=== PATIENT | male | born 1995 | race Two or more races ===

== ENCOUNTER 2019-12-11 03:42 | Emergency (ER) | payer SELFPAY ==
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
== END 2019-12-11 04:35 ==
LOC: MW.ED 03:42
DX: S50.812A Abrasion of left forearm, initial encounter (principal); S50.811A Abrasion of right forearm, initial encounter; F32.9 Major depressive disorder, single episode, unspecified; X78.9XXA Intentional self-harm by unspecified sharp object, initial encounter
CPT/HCPCS: 99283

== ENCOUNTER 2019-12-27 03:15 | Emergency (ER) | payer SELFPAY ==
--- NOTE | 2019-12-27 03:21 | EDM.PDOC ---
ED HPI GENERAL MEDICAL PROBLEM - General Chief Complaint: General Stated Complaint: LEFT SIDE CHEST PAIN Time Seen by Provider: 12/27/19 03:18 Source of Information: Reports: Patient History Limitations: Reports: No Limitations - History of Present Illness INITIAL COMMENTS - FREE TEXT/NARRATIVE: 24-year-old male presents the emergency room with a chief complaint of left- sided sharp chest pain for the past 2 days. She has had flulike symptoms prior to this but now has significant pleuritic pain. Has pain when he moves Onset: Today Duration: Hour(s): (3), Getting Worse Location: Reports: Chest, Abdomen Quality: Reports: Ache, Burning Severity: Moderate Improves with: Reports: None Worsens with: Reports: None, Breathing, Movement Associated Symptoms: Reports: Shortness of Breath left side rib Pain Score (Numeric/FACES): 7 - Related Data Allergies Allergy/AdvReac Type Severity Reaction Status Date / Time No Known Allergies Allergy Verified 12/11/19 03:58 Home Meds: Home Meds Cyclobenzaprine [Flexeril] 10 mg PO BEDTIME #1 tab 12/27/19 [Rx] Cyclobenzaprine [Flexeril] 10 mg PO BEDTIME #14 tab 12/27/19 [Rx] Past Medical History Psychiatric History: Reports: ADHD Other Psychiatric History: ADHD as a child, no longer being treated for it. - Past Surgical History Musculoskeletal Surgical History: Reports: Other (See Below) Other Musculoskeletal Surgeries/Procedures:: meniscus repair to R knee ED ROS GENERAL - Review of Systems Review Of Systems: See Below Constitutional: Reports: No Symptoms HEENT: Reports: No Symptoms Respiratory: Reports: Pleuritic Chest Pain Cardiovascular: Reports: No Symptoms Endocrine: Reports: No Symptoms GI/Abdominal: Reports: No Symptoms, Abdominal Pain Musculoskeletal: Reports: Muscle Pain Skin: Reports: No Symptoms Neurological: Reports: No Symptoms Psychiatric: Reports: No Symptoms Hematologic/Lymphatic: Reports: No Symptoms Immunologic: Reports: No Symptoms ED EXAM, GENERAL - Physical Exam Exam: See Below Exam Limited By: No Limitations General Appearance: Alert, WD/WN, No Apparent Distress, Moderate Distress Eye Exam: Bilateral Eye: Normal Fundi, Normal Inspection Ear Exam: Bilateral Ear: Auricle Normal, Canal Normal Nose: Normal Inspection, Normal Mucosa, No Blood Throat/Mouth: Normal Inspection, Normal Lips, Normal Teeth, Normal Gums, Normal Oropharynx, Normal Voice, No Airway Compromise Head: Atraumatic, Normocephalic Neck: Normal Inspection, Supple, Non-Tender, Full Range of Motion Respiratory/Chest: No Respiratory Distress, Lungs Clear, Normal Breath Sounds, No Accessory Muscle Use, Chest Non-Tender, Other (Patient has chest wall tenderness 6 intercostal space on palpation) Cardiovascular: Normal Peripheral Pulses, Regular Rate, Rhythm, No Edema, No Gallop, No JVD, No Murmur, No Rub GI/Abdominal: Normal Bowel Sounds, Soft, Non-Tender, No Organomegaly, No Distention, No Abnormal Bruit, No Mass (Male) Exam: Deferred Rectal (Males) Exam: Deferred Back Exam: Normal Inspection, Full Range of Motion, NT Neurological: Alert, Oriented, CN II-XII Intact, Normal Cognition, Normal Gait, Normal Reflexes, No Motor/Sensory Deficits Psychiatric: Normal Affect, Normal Mood Skin Exam: Warm, Dry, Intact, Normal Color, No Rash Lymphatic: No Adenopathy Course - Vital Signs Text/Narrative:: 24-year-old male presents the emergency room chief complaint with acute costal pain. Patient states he has severe pain when he takes a deep breath or moves. Patient had no trauma. His x-rays are normal CT shows no signs of infection. Acute costochondritis patient was placed on anti-inflammatory meds Last Recorded V/S: Last Vital Signs Temp 96.7 F L 12/27/19 03:20 Pulse 65 12/27/19 04:34 Resp 18 12/27/19 04:34 BP 137/72 12/27/19 04:34 Pulse Ox 96 12/27/19 04:34 - Orders/Labs/Meds Labs: Laboratory Tests 12/27/19 Range/Units 03:23 WBC 8.37 (4.0-11.0) K/uL RBC 5.08 (4.50-5.90) M/uL Hgb 14.6 (13.0-17.0) g/dL Hct 44.9 (38.0-50.0) % MCV 88.4 (80.0-98.0) fL MCH 28.7 (27.0-32.0) pg MCHC 32.5 (31.0-37.0) g/dL RDW Std Deviation 42.1 (28.0-62.0) fl RDW Coeff of Anny 13 (11.0-15.0) % Plt Count 186 (150-400) K/uL MPV 9.30 (7.40-12.00) fL Neut % (Auto) 59.6 (48.0-80.0) % Lymph % (Auto) 26.9 (16.0-40.0) % [place] % (Auto) 6.2 (0.0-15.0) % Eos % (Auto) 7.2 H (0.0-7.0) % Baso % (Auto) 0.1 (0.0-1.5) % Neut # (Auto) 5.0 (1.4-5.7) K/uL Lymph # (Auto) 2.3 (0.6-2.4) K/uL [place] # (Auto) 0.5 (0.0-0.8) K/uL Eos # (Auto) 0.6 (0.0-0.7) K/uL Baso # (Auto) 0.0 (0.0-0.1) K/uL Nucleated RBC % 0.0 /100WBC Nucleated RBCs # 0 K/uL Departure - Departure Time of Disposition: 04:46 Disposition: Home, Self-Care 01 Condition: Good Clinical Impression: Acute costochondritis - Discharge Information Instructions: Costochondritis, [id number], Chest Wall Pain, [id number] Forms: ED Department Discharge Additional Instructions: Take your medication as prescribed Follow-up with your primary care physician Sepsis Event Note - Focused Exam Vital Signs: Vital Signs Temp Pulse Resp BP Pulse Ox 12/27/19 04:34 65 18 137/72 96 12/27/19 03:20 96.7 F L 74 16 151/88 H 97 Date Exam was Performed: 12/27/19 Time Exam was Performed: 04:39
--- NOTE | 2019-12-27 04:36 | CR ---
Indication: Rib pain Technique: Chest 2 views Comparison: None Findings/Impression: Cardiovascular and mediastinum: Heart size and vasculature are normal in caliber and appearance. Mediastinum is within normal limits. Lungs and pleural spaces: Lungs are clear. No sign of infiltrate or mass. No sign of pleural effusion. No pneumothorax. Bones and soft tissues: No significant findings. Dictated by Nba Guo MD @ 12/27/2019 4:34:59 AM Dictated by: Nba Guo MD @ 12/27/2019 04:35:05 (Electronically Signed)
[2019-12-27] MEDS ORDERED: Ketorolac 60 MG/2 ML SDV IM ONE (04:42)
[2019-12-27] MEDS ORDERED: Cyclobenzaprine 10 MG Tab PO ONE ×2 (04:47→04:55)
== END 2019-12-27 05:00 | disposition home or self-care (01) ==
LOC: MW.ED 03:15
DX: M94.0 Chondrocostal junction syndrome [Tietze] (principal)
CPT/HCPCS: 36415; 71046; 85025; 99284; A9270; 99282

== ENCOUNTER 2020-01-02 04:50 | Emergency (ER) | payer SELFPAY ==
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
== END 2020-01-02 06:28 | disposition home or self-care (01) ==
LOC: MW.ED 04:50
DX: M62.81 Muscle weakness (generalized) (principal); F17.210 Nicotine dependence, cigarettes, uncomplicated
CPT/HCPCS: 73070-26-LT; 73070-LT; 99282; 99283-25

== ENCOUNTER 2020-01-24 22:58 | Emergency (ER) | payer SELFPAY ==
[2020-01-25] MEDS ORDERED: Ibuprofen 600 MG Tab PO ONE (00:38)
--- NOTE | 2020-01-25 01:09 | CR ---
INDICATION: lt shoulder trauma TECHNIQUE: Left shoulder 3 views. COMPARISON: None. FINDINGS: Bones: Alignment is normal. No fractures or bone lesions. Joint spaces: Unremarkable. Soft tissues: Unremarkable. IMPRESSION: Unremarkable left shoulder. Dictated by: Romario Alexandre MD @ 01/25/2020 01:07:22 (Electronically Signed)
--- NOTE | 2020-01-25 01:16 | EDM.PDOC ---
ED HPI GENERAL MEDICAL PROBLEM - General Chief Complaint: General Stated Complaint: SHOULDER,ANKLE,KNEE PAIN Time Seen by Provider: 01/25/20 00:15 Source of Information: Reports: Patient History Limitations: Reports: No Limitations - History of Present Illness INITIAL COMMENTS - FREE TEXT/NARRATIVE: HISTORY AND PHYSICAL: History of present illness: This is a 24-year-old gentleman who presents ER today complaining of left shoulder pain. Patient reports that he has had old injuries to his knees and ankles. Patient reports today his right knee locked up and he fell down injuring his left shoulder. Patient denies any other symptomatology. Patient denies any loss of consciousness. Patient has any head trauma or neck pain. Patient denies any history of hypertension, diabetes, liver, lung, kidney problems. Patient denies any abdominal or chest surgeries. Patient endorses tobacco alcohol and drugs. Review of systems: As per history of present illness and below otherwise all systems reviewed and negative. Past medical history: As per history of present illness and as reviewed below otherwise noncontributory. Surgical history: As per history of present illness and as reviewed below otherwise noncontributory. Social history: No reported history of drug or alcohol abuse. Family history: As per history of present illness and as reviewed below otherwise noncontributory. Physical exam: Constitutional: Patient is oriented to person, place, and time. Appears well- developed and well-nourished. No distress. HEENT: Moist mucous membranes Head: Normocephalic and atraumatic Eyes: Right eye exhibits no discharge. Left eye exhibits no discharge. No scleral icterus Neck: Normal range of motion. No tracheal deviation present. Cardiovascular: Normal rate and regular rhythm. Pulmonary: Effort normal, no respiratory distress. Abdominal: No distention Musculoskeletal: Normal range of motion Neurologic: Alert and oriented to person, place and time. Skin: [place], warm and dry. Psychiatric: Normal mood and affect. Behavior is normal. Judgment and thought content normal. Nursing note and vital signs have been reviewed Patient's ER physical exam is significant for tenderness to palpation to his right knee and right ankle. Patient has no deformity or swelling identified. Patient has tenderness palpation to his left shoulder with full range of motion intact. Patient is neurovascularly intact sensation and motor function is intact. Diagnostics: Right shoulder x-ray reveals no acute fracture or dislocation. Therapeutics: Ibuprofen 600 mg Impression: Right shoulder injury secondary to fall. Appears to be mechanical in nature without evidence of acute fracture. Patient be discharged home with ibuprofen rest ice elevation. Reassessment at the time of disposition demonstrates that the patient is in no acute distress. The patient has remained stable throughout the entire ED visit and is without objective evidence for acute process requiring urgent intervention or hospitalization. The patient is stable for discharge, counseling is provided as documented above, discussed symptomatic treatment and specific conditions for return. I have spoken with the patient/caregive and discussed todays findings, in addition to providing specific details for the plan of care. Questions are answered and there is agreement with the plan. right ankle, knee, and left collarbone Pain Score (Numeric/FACES): 9 - Related Data Allergies Allergy/AdvReac Type Severity Reaction Status Date / Time No Known Allergies Allergy Verified 01/24/20 23:17 Home Meds: Home Meds . [No Known Home Meds] 01/02/20 [History] Past Medical History - Past Health History Medical/Surgical History: Denies Medical/Surgical History HEENT History: Reports: None Cardiovascular History: Reports: None Respiratory History: Reports: None Gastrointestinal History: Reports: None Genitourinary History: Reports: None Neurological History: Reports: None Psychiatric History: Reports: ADHD, Suicide Attempt, Suicidal Ideation Other Psychiatric History: ADHD as a child, no longer being treated for it. Endocrine/Metabolic History: Reports: None Hematologic History: Reports: None Immunologic History: Reports: None Oncologic (Cancer) History: Reports: None Dermatologic History: Reports: None - Infectious Disease History Infectious Disease History: Reports: None - Past Surgical History Head Surgeries/Procedures: Reports: None Musculoskeletal Surgical History: Reports: Arthroscopic Knee, Other (See Below) Other Musculoskeletal Surgeries/Procedures:: meniscus repair to R knee Social & Family History - Family History Family Medical History: Noncontributory - Tobacco Use Smoking Status *Q: Current Every Day Smoker Years of Tobacco use: 6 Packs/Tins Daily: 0.5 - Caffeine Use Caffeine Use: Reports: None - Recreational Drug Use Recreational Drug Use: Yes Recreational Drug Type: Reports: Ecstasy, Marijuana/Hashish ED ROS GENERAL - Review of Systems Review Of Systems: Comprehensive ROS is negative, except as noted in HPI. ED EXAM, GENERAL - Physical Exam Exam: See Below Course - Vital Signs Last Recorded V/S: Last Vital Signs Temp 96.9 F 01/24/20 23:13 Pulse 74 01/24/20 23:13 Resp 16 01/24/20 23:13 BP 146/103 H 01/24/20 23:13 Pulse Ox 96 01/24/20 23:13 - Orders/Labs/Meds Meds: Medications Discontinued Medications Generic Name Dose Route Start Last Admin Trade Name Naseem PRN Reason Stop Dose Admin Ibuprofen 600 mg 01/25/20 00:38 01/25/20 01:03 Motrin PO 01/25/20 00:39 Not Given ONETIME ONE Departure - Departure Time of Disposition: 01:14 Disposition: Home, Self-Care 01 Clinical Impression: Shoulder pain, acute - Discharge Information *PRESCRIPTION DRUG MONITORING PROGRAM REVIEWED*: Not Applicable *COPY OF PRESCRIPTION DRUG MONITORING REPORT IN PATIENT FABRICIO: Not Applicable Instructions: Shoulder Pain Referrals: PCP,None [Primary Care Provider] - Additional Instructions: You were seen and evaluated today in the ER secondary to the pain in your left shoulder. Your x-ray today does not reveal any fracture or dislocation. We are recommending that you take ibuprofen 600 mg every 6 hours as needed for pain. We recommend rest your shoulder as much as possible and ice it up as much as possible over the next 3 to 5 days. You will be given the phone number for the orthopedic clinic so they can assist you with further management of your pain if it persists. The following information is given to patients seen in the emergency department who are being discharged to home. This information is to outline your options for follow-up care. We provide all patients seen in our emergency department with a follow-up referral. The need for follow-up, as well as the timing and circumstances, are variable depending upon the specifics of your emergency department visit. If you don't have a primary care physician on staff, we will provide you with a referral. We always advise you to contact your personal physician following an emergency department visit to inform them of the circumstance of the visit and for follow-up with them and/or the need for any referrals to a consulting specialist. The emergency department will also refer you to a specialist when appropriate. This referral assures that you have the opportunity for follow-up care with a specialist. All of these measure are taken in an effort to provide you with optimal care, which includes your follow-up. Under all circumstances we always encourage you to contact your private physician who remains a resource for coordinating your care. When calling for follow-up care, please make the office aware that this follow-up is from your recent emergency room visit. If for any reason you are refused follow-up, please contact the [facility] Emergency Department at and asked to speak to the emergency department charge nurse. [facility] [address], [address] [place] [address] Sepsis Event Note (ED) - Evaluation Sepsis Screening Result: No Definite Risk - Focused Exam Vital Signs: Vital Signs Temp Pulse Resp BP Pulse Ox 01/24/20 23:13 96.9 F 74 16 146/103 H 96
== END 2020-01-25 01:30 | disposition home or self-care (01) ==
LOC: MW.ED 22:58
DX: S49.92XA Unspecified injury of left shoulder and upper arm, initial encounter (principal); F17.210 Nicotine dependence, cigarettes, uncomplicated; W19.XXXA Unspecified fall, initial encounter
CPT/HCPCS: 73030-26-LT; 73030-LT; 99282; 99283-25

== ENCOUNTER 2020-05-20 22:44 | Emergency (ER) | payer SELFPAY ==
[2020-05-20] MEDS ORDERED: diphenhydrAMINE 50 MG Cap PO ONE (22:57)
[2020-05-20] MEDS ORDERED: predniSONE 10 MG Tab PO ONE (22:57)
--- NOTE | 2020-05-20 23:02 | EDM.PDOC ---
ED HPI GENERAL MEDICAL PROBLEM - General Chief Complaint: Allergic Reaction Stated Complaint: ITCHING/ALLERGIC Time Seen by Provider: 05/20/20 22:52 - History of Present Illness INITIAL COMMENTS - FREE TEXT/NARRATIVE: 25-year-old male with known peanut allergy was working with peanut oil and sustained a cut from a screwdriver covered in peanut oil to his right forearm he has had itching and swelling since that time no nausea no vomiting no shortness of breath no sensation of throat swelling. Patient does have a history of anaphylaxis to peanuts. He states that he thinks he lost his EpiPen when he moved. Symptoms are constant without exacerbating or alleviating factors radiation or other associated symptoms. He reports his last tetanus shot was within the last few years. - Related Data Allergies Allergy/AdvReac Type Severity Reaction Status Date / Time peanut Allergy Airway Verified 05/20/20 23:00 Tightness peanut oil Allergy Airway Verified 05/20/20 23:00 Tightness Home Meds: Home Meds Ibuprofen [Motrin] 600 mg PO Q6H PRN #30 tab 01/25/20 [Rx] EPINEPHrine [Epipen 2-Mau] 0.3 mg IJ ONETIME PRN 1 Days #1 auto.injct 05/20/20 [Rx] Past Medical History - Past Health History Medical/Surgical History: Denies Medical/Surgical History HEENT History: Reports: None Cardiovascular History: Reports: None Respiratory History: Reports: None Gastrointestinal History: Reports: None Genitourinary History: Reports: None Neurological History: Reports: None Psychiatric History: Reports: ADHD, Suicide Attempt, Suicidal Ideation Other Psychiatric History: ADHD as a child, no longer being treated for it. Endocrine/Metabolic History: Reports: None Hematologic History: Reports: None Immunologic History: Reports: None Oncologic (Cancer) History: Reports: None Dermatologic History: Reports: None - Infectious Disease History Infectious Disease History: Reports: None - Past Surgical History Head Surgeries/Procedures: Reports: None Musculoskeletal Surgical History: Reports: Arthroscopic Knee, Other (See Below) Other Musculoskeletal Surgeries/Procedures:: meniscus repair to R knee Social & Family History - Family History Family Medical History: Noncontributory - Caffeine Use Caffeine Use: Reports: None ED ROS ALLERGIC REACTION - Review of Systems Review Of Systems: See Below Free Text/Narrative/Comment: General: No fever. Skin: Per HPI Eyes: No vision problems. ENT: No sore throat. Neck: No neck stiffness. Respiratory: No shortness of breath. Cardiac: No chest pain. Gastrointestinal: No nausea, vomiting or abdominal pain. Musculoskeletal: No myalgias/arthralgias. Neurologic: No headache. ED EXAM GENERAL NO PERIP PULSE - Physical Exam Exam: See Below Text/Narrative:: General Appearance: No acute distress, appears comfortable Skin: 1 cm superficial abrasion laceration to the right forearm no retained foreign body HEENT: Normocephalic/atraumatic, sclera anicteric, mucous membranes moist Neck: Normal range of motion Chest and Lungs: Bilateral breath sounds, clear to auscultation Cardiovascular: Regular rate and rhythm, no murmur Abdomen: Soft, non-tender Back: Normal Musculoskeletal: No edema or tenderness Neurologic: Awake, alert, no obvious deficits, moving all extremities Psychiatric: Appropriate, cooperative Course - Vital Signs Last Recorded V/S: Last Vital Signs Temp 97.1 F 05/20/20 22:56 Pulse 78 05/20/20 22:56 Resp 14 05/20/20 22:56 BP 121/76 05/20/20 22:56 Pulse Ox 96 05/20/20 22:56 - Orders/Labs/Meds Meds: Medications Discontinued Medications Generic Name Dose Route Start Last Admin Trade Name Freq PRN Reason Stop Dose Admin Diphenhydramine HCl 50 mg 05/20/20 22:57 05/20/20 23:04 Benadryl PO 05/20/20 22:58 50 mg ONETIME ONE Administration Prednisone 50 mg 05/20/20 22:57 05/20/20 23:03 Prednisone PO 05/20/20 22:58 50 mg ONETIME ONE Administration Departure - Departure Time of Disposition: 23:10 Disposition: Home, Self-Care 01 Condition: Good Clinical Impression: Allergic reaction - Discharge Information *PRESCRIPTION DRUG MONITORING PROGRAM REVIEWED*: Not Applicable *COPY OF PRESCRIPTION DRUG MONITORING REPORT IN PATIENT FABRICIO: Not Applicable Prescriptions: EPINEPHrine [Epipen 2-Mau] 0.3 mg IJ ONETIME PRN 1 Days #1 auto.injct PRN Reason: allergic reaction Instructions: How to Use an Auto-Injector Pen Referrals: PCP,None [Primary Care Provider] - Forms: ED Department Discharge Additional Instructions: Keep a close eye on how you are feeling. The prednisone and Benadryl should be all you need to control this reaction. However if you develop any sensation of difficulty breathing or throat swelling please return to the emergency department right away. Please black pickler your prescription for your EpiPen tomorrow afternoon at [facility]. The following information is given to patients seen in the emergency department who are being discharged to home. This information is to outline your options for follow-up care. We provide all patients seen in our emergency department with a follow-up referral. The need for follow-up, as well as the timing and circumstances, are variable depending upon the specifics of your emergency department visit. If you don't have a primary care physician on staff, we will provide you with a referral. We always advise you to contact your personal physician following an emergency department visit to inform them of the circumstance of the visit and for follow-up with them and/or the need for any referrals to a consulting specialist. The emergency department will also refer you to a specialist when appropriate. This referral assures that you have the opportunity for follow-up care with a specialist. All of these measure are taken in an effort to provide you with optimal care, which includes your follow-up. Under all circumstances we always encourage you to contact your private physician who remains a resource for coordinating your care. When calling for follow-up care, please make the office aware that this follow-up is from your recent emergency room visit. If for any reason you are refused follow-up, please contact the [facility] Emergency Department at and asked to speak to the emergency department charge nurse. Sepsis Event Note (ED) - Focused Exam Vital Signs: Vital Signs Temp Pulse Resp BP Pulse Ox 05/20/20 22:56 97.1 F 78 14 121/76 96 - Assessment/Plan Assessment:: 25-year-old male presenting with allergic reaction to peanut oil without signs of anaphylaxis. His tetanus is already up-to-date the wound was carefully cleaned by nursing. Given patient's minimal symptoms we will treat with oral Benadryl and prednisone. I have also sent a prescription for EpiPen autoinjector to the pharmacy for him to black pickler tomorrow strict return precautions discussed and understood. No signs of GI or respiratory involvement and no objective rash or swelling of the right forearm.
== END 2020-05-20 23:15 | disposition home or self-care (01) ==
LOC: MW.ED 22:44
DX: T78.1XXA Other adverse food reactions, not elsewhere classified, initial encounter (principal); S51.811A Laceration without foreign body of right forearm, initial encounter; W27.0XXA Contact with workbench tool, initial encounter
CPT/HCPCS: 99283; A9270; 99282